=== PATIENT | female | born 1955 | race Hispanic/Latino ===

== ENCOUNTER 2018-02-06 14:52 | Inpatient (IN) | payer OTHER, BC ==
[2018-02-06 14:53] VITALS: BMI 35.2
[2018-02-06] MEDS ORDERED: Oxycodone/Acetaminophen 5/325 mg Tab PO STA (15:27)
--- NOTE | 2018-02-06 15:31 | ED PDOC ---
Arrival/HPI - General Chief Complaint: Trauma Time Seen by Provider: 02/06/18 15:26 Historian: Patient - History of Present Illness Narrative History of Present Illness (Text): 02/06/18 15:27 62 year old female, with no significant past medical history, presents to the emergency department s/p trip and fall while at work today, just prior to Emergency department arrival. Patient tripped on a wet surface while at work, and fell forward to the right side. Patient notes she felt immediate pain after the fall to her right arm/shoulder area, pt is unable to move her right arm well. Pt denied numbness/tingling, pt states no focal weakness; Patient denies any LOC (pre/post fall), pt denied fever/chills/sweats, no cp/sob/palpitations, no abd pain, no n/v, no urinary/bowel changes, no incontinence, no smith/neck pain , no vision changes, no gross bleeding, no other complaints. pt is here for further eval. PCP: Dr Espana Patient is left hand dominant Time/Duration: Prior to Arrival Symptom Onset: Sudden Symptom Course: Unchanged Severity Level: Severe Activities at Onset: Light Context: Work Past Medical History - Provider Review Nursing Documentation Reviewed: Yes - Travel History Have you recently traveled outside [place] w/in the past 3 mons?: No - Past History Past History: Non-Contributing - Infectious Disease Hx of Infectious Diseases: None - Tetanus Immunization Tetanus Immunization: Up to Date - Reproductive Menopause: Yes Currently : No - Cardiac Hx Cardiac Disorders: No Hx Pacemaker: No - Pulmonary Hx Respiratory Disorders: No - Neurological Hx Neurological Disorder: No Hx Paralysis: No - HEENT Hx HEENT Disorder: No - Renal Hx Renal Disorder: No - Endocrine/Metabolic Hx Hypothyroidism: Yes - Hematological/Oncological Hx Blood Disorders: No Hx Blood Transfusions: No Hx Blood Transfusion Reaction: No - Integumentary Hx Dermatological Disorder: No - Musculoskeletal/Rheumatological Hx Musculoskeletal Disorders: No - Gastrointestinal Hx Gastrointestinal Disorders: No - Genitourinary/Gynecological Hx Genitourinary Disorders: No - Psychiatric Hx Depression: No Hx Emotional Abuse: No Hx Physical Abuse: No Hx Substance Use: No - Past Surgical History Past Surgical History: No Previous - Anesthesia Hx Anesthesia Reactions: No Hx Malignant Hyperthermia: No - Suicidal Assessment Feels Threatened In Home Enviroment: No Family/Social History - Physician Review Nursing Documentation Reviewed: Yes Family/Social History: Unknown Family HX Smoking Status: Never Smoked Hx Alcohol Use: Yes (SOCIALLY) Hx Substance Use: No Hx Substance Use Treatment: No Allergies/Home Meds Allergies/Adverse Reactions: Allergies No Known Allergies Allergy (Verified 02/06/18 15:18) Home Medications: Home Meds Medication Instructions Recorded Confirmed Levothyroxine Sodium [Levoxyl] 200 mcg PO DAILY 02/06/18 02/06/18 Review of Systems - Physician Review All systems were reviewed & negative as marked: Yes - Review of Systems Constitutional: Normal Eyes: Normal ENT: Normal Respiratory: Normal. absent: SOB, Cough Cardiovascular: Normal. absent: Chest Pain Gastrointestinal: Normal. absent: Abdominal Pain, Diarrhea, Nausea, Vomiting Genitourinary Female: Normal. absent: Dysuria, Frequency, Hematuria Musculoskeletal: Other (right arm and right shoulder pain). absent: Back Pain, Neck Pain Skin: Normal Neurological: Normal Endocrine: Normal Hemo/Lymphatic: Normal Psychiatric: Normal Physical Exam - Physical Exam Narrative Physical Exam (Text): 02/06/18 1527 General: alert/awake, GCS = 15, oriented x 3, resting in bed, uncomfortable, cooperative, interactive; mild distress due to pain Head: NC/AT EYE: PERRLA, EOMI, sclera anicteric, no nystagmus, no photophobia; visual field intact b/l Facial: WNL Oral: uvula/tongue are midline, no exudate/lesions, no drooling/stridor, no dysphonia; intact dentitions; moist oral mucosa NECK: intact ROM, no midline tenderness, no nuchal rigidity, no meningeal signs ; no step off; no gross deformities Chest: CTA b/l, no w/r/r; no tachypenia, no accessory muscle use noted Cardiac: +S1, +S2, no m/r/r, no tachycardia Abdominal: +BS, soft/nd/nt, well nourished/mild obese female patient; no masses/ rebound/guarding/rigidity; no rutherford's sign, no mcburney's point tenderness Extremities: decr ROM to right shoulder/arm; intact ROM to rest of pt's limbs; strength 5/5 grossly intact in all limbs, neurovasc intact b/l; + ambulatory; reflex +2/2; no gross deformities noted, no pitting edema/swelling noted, no ivania's sign b/l; + diffuse right proximal arm tenderness, no crepitus/skin lesions noted; no open sores/wounds noted BACK: no step off, no midline tenderness, NO crepitus, no gross deformities noted; Intact ROM SKIN: cap refill < 1 sec, no ulcerations, no petechiae, no rashes; no gross pallor NEURO: CNII-XII WNL, no facial asymmetries, no slurr speech, oriented x 3 Psych: normal insight, normal affect; follows command with ease Vital Signs Reviewed: Yes Vital Signs Temp Pulse Pulse Resp BP Pulse Ox 02/06/18 20:16 97.7 F 50 L 50 L 20 138/74 02/06/18 19:52 55 L 20 145/80 95 02/06/18 15:44 97.7 F 50 L 20 138/74 95 Temperature: Afebrile Blood Pressure: Normal Pulse: Bradycardic Respiratory Rate: Normal Appearance: Positive for: Well-Appearing, Uncomfortable. 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 Plan: -- Valium -- Toradol -- Percocet -- Xray rigth elbow -- Xray rt humerus -- Xray rt shoulder -- Reassess and disposition Progress Notes: 02/06/18 16:43 pt is awaiting dx results 02/06/18 16:58 with abnl xray, consulted Dr David, education diagnostician ortho, who recommended CT and would like pt admitted for further eval/mgt/txt of pt's right shoulder/arm fracture pt continues to have pain pt is made aware of her medical results pt agrees with admission paging hospitalists for admission 02/06/18 17:25 Case discussed with hospitalist, Dr Gardner, made aware of pt's Emergency department presentation, diagnostic findings; agrees with admission 1900 pt is not in any distress currently pt is resting in bed comfortably pt is made aware of her medical results agrees with admission Re-evaluation Time: 17:25 Reassessment Condition: Improving,but remains with symptoms - Lab Interpretations I have reviewed the lab results: Yes Interpretation: Abnormal lab values (elevated WBCs) - RAD Interpretation Narrative RAD Interpretations (Text): 02/06/18 17:40 Xray Humerus reviewed, shows: BONES: Known fracture of the right humeral head. No additional, distal abnormalities identified. SOFT TISSUES: Soft tissue swelling attests to the acuity of the fracture. OTHER FINDINGS: None. IMPRESSION: Acute fracture which is both comminuted and intra-articular. No distal humeral abnormalities Xray Elbow reviewed, shows: BONES: Normal. No fracture. JOINTS: Normal. No osteoarthritis. SOFT TISSUES: Normal. JOINT EFFUSION: None. OTHER FINDINGS: None. IMPRESSION: Unremarkable radiographs of the right elbow. Xray Shoulder reviewed, shows: Impacted and comminuted fracture of the proximal humerus/humeral head. Avulsed fracture fragments are identified. JOINTS: Unremarkable acromioclavicular joint. SOFT TISSUES: Soft tissue swelling attests to the acuity of the fracture. OTHER FINDINGS: None. IMPRESSION: Acute/comminuted fracture right humeral head. Upper Extremity CT reviewed, shows: Impacted fracture of the proximal left humerus. The humeral neck is both impacted and displaced medially. Avulsion of the greater tuberosity. Preservation of the glenohumeral head relationship. No acromioclavicular abnormalities identified. No visualized rib fractures. Unremarkable scapula. Soft tissue swelling attests to the acuity of the fracture. IMPRESSION: Impacted, comminuted fracture of proximal right humerus. Preservation of glenohumeral relationship. Additional details described above PROCEDURE: CHEST RADIOGRAPH, 1 VIEW HISTORY: medical clearance COMPARISON: None available. FINDINGS: LUNGS: Clear. PLEURA: No pneumothorax or pleural fluid seen. CARDIOVASCULAR: No radiographic findings to suggest acute or significant cardiovascular disease. OSSEOUS STRUCTURES: Incompletely visualize proximal right humeral fracture. VISUALIZED UPPER ABDOMEN: Normal. OTHER FINDINGS: None. IMPRESSION: No active disease. Radiology Orders: 02/06/18 15:27 SHOULDER RIGHT [RAD] Stat 02/06/18 15:28 ELBOW RIGHT 3 VIEWS ROUTINE [RAD] Stat HUMERUS RIGHT [RAD] Stat 02/06/18 16:53 EXT UPPER W/O CONTRAST RIGHT [CT] Stat 02/06/18 16:55 CHEST ONE VIEW [RAD] Stat Writer Editor: Radiologist - EKG Interpretation EKG Interpretation (Text): 02/06/18 21:31 NSR at 70 bpm, normal axis, no ectopy, inferior lead low voltage noted, no st-t changes, BORDERLINE EKG; no old ekg to compare with Interpreted by ED Physician: Yes Type: 12 lead EKG Comparison: No previous EKG avail. - Medication Orders Current Medication Orders: Famotidine (Pepcid) 20 mg IVP DAILY YIFAN Sodium Chloride (Sodium Chloride 0.9%) 1,000 mls @ 100 mls/hr IV .Q10H YIFAN Last Admin: 02/06/18 18:50 Dose: 100 mls/hr eMAR Start Stop Document 02/06/18 18:50 LA (Rec: 02/06/18 18:50 LA [id number]) Intravenous Solution Start Date 02/06/18 Start Time 18:50 Morphine Sulfate (Morphine) 1 mg IVP Q3H PRN PRN Reason: Pain, moderate (4-7) Polyethylene Glycol (Miralax) 17 gm PO BID YIFAN Discontinued Medications Diazepam (Valium) 2 mg PO ONCE ONE PRN Reason: Protocol Stop: 02/06/18 15:28 Last Admin: 02/06/18 15:54 Dose: 2 mg Ketorolac Tromethamine (Toradol) 30 mg IM STAT STA Stop: 02/06/18 15:28 Last Admin: 02/06/18 15:54 Dose: 30 mg MAR Pain Assessment Document 02/06/18 15:54 LA (Rec: 02/06/18 15:54 LA [id number]) Pain Reassessment Is this a pain reassessment? No Sleep Is patient sleeping during reassessment? No Presence of Pain Presence of Pain Yes Pain Scale Used Pain Scale Used Numeric Location Left, Right or Bilateral Right Pain Location Body Site Shoulder Description Description Constant Intensity of Pain at present 10 Pain Behavior Guarding IM Administration Charges Document 02/06/18 15:54 LA (Rec: 02/06/18 15:54 LA [id number]) Injection Site MAR Injection Site Right Gluteus Braulio Charges for Administration # of IM Administrations 1 Re-Assess: MAR Pain Assessment Document 02/06/18 16:54 LA (Rec: 02/06/18 19:44 LA [id number]) Pain Reassessment Is this a pain reassessment? Yes Sleep Is patient sleeping during reassessment? No Presence of Pain Presence of Pain Yes Location Left, Right or Bilateral Right Pain Location Body Site Shoulder Description Description Constant Intensity of Pain at present 6 Morphine Sulfate (Morphine) 4 mg IVP STAT STA Stop: 02/06/18 16:57 Last Admin: 02/06/18 18:49 Dose: 4 mg MAR Pain Assessment Document 02/06/18 18:49 LA (Rec: 02/06/18 18:49 LA [id number]) Pain Reassessment Is this a pain reassessment? No Sleep Is patient sleeping during reassessment? No Presence of Pain Presence of Pain Yes Pain Scale Used Pain Scale Used Numeric Location Left, Right or Bilateral Left Pain Location Body Site Shoulder Description Description Constant Intensity of Pain at present 6 Pain Behavior Guarding IVP Administration Document 02/06/18 18:49 LA (Rec: 02/06/18 18:49 LA [id number]) Charges for Administration # of IVP Administrations 1 Re-Assess: [facility] Pain Assessment Document 02/06/18 19:49 LA (Rec: 02/06/18 20:54 LA [id number]) Pain Reassessment Is this a pain reassessment? Yes Location Left, Right or Bilateral Right Pain Location Body Site Shoulder Description Intensity of Pain at present 5 Oxycodone/Acetaminophen (Percocet 5/325 Mg Tab) 1 tab PO STAT STA Stop: 02/06/18 15:28 Last Admin: 02/06/18 15:53 Dose: [address] [facility] Pain Assessment Document 02/06/18 15:53 LA (Rec: 02/06/18 15:54 LA [id number]) Pain Reassessment Is this a pain reassessment? No Sleep Is patient sleeping during reassessment? No Presence of Pain Presence of Pain Yes Pain Scale Used Pain Scale Used Numeric Location Left, Right or Bilateral Right Pain Location Body Site Shoulder Description Description Constant Intensity of Pain at present 10 Re-Assess: [facility] Pain Assessment Document 02/06/18 16:53 LA (Rec: 02/06/18 19:43 LA [id number]) Pain Reassessment Is this a pain reassessment? Yes Sleep Is patient sleeping during reassessment? No Presence of Pain Presence of Pain Yes Pain Scale Used Pain Scale Used Numeric Location Left, Right or Bilateral Right Pain Location Body Site Shoulder Description Description Constant Intensity of Pain at present 6 Pain Behavior Guarding Pneumococcal Polyvalent Vaccine (Pneumovax 23 Vaccine) 0.5 ml IM .ONCE ONE Stop: 02/06/18 20:42 - Scribe Statement The provider has reviewed the documentation as recorded by the Viktoryiaibayleen Terrell All medical record entries made by the Scribayleen were at my direction and personally dictated by me. I have reviewed the chart and agree that the record accurately reflects my personal performance of the history, physical exam, medical decision making, and the department course for this patient. I have also personally directed, reviewed, and agree with the discharge instructions and disposition. Disposition/Present on Arrival - Present on Arrival Any Indicators Present on Arrival: No History of DVT/PE: No History of Uncontrolled Diabetes: No Urinary Catheter: No History of Decub. Ulcer: No History Surgical Site Infection Following: None - Disposition Have Diagnosis and Disposition been Completed?: Yes Diagnosis: Proximal humeral fracture, Fall Disposition: HOSPITALIZED Disposition Time: 17:30 Patient Plan: Admission Condition: STABLE
[2018-02-06] MEDS ORDERED: Morphine 2 mg/ml ISec IVP STA (16:56)
--- NOTE | 2018-02-06 17:11 | RAD ---
PROCEDURE: Radiographs of the Right Shoulder HISTORY: trip and fall at work, right arm pain COMPARISON: No prior. FINDINGS: BONES: Impacted and comminuted fracture of the proximal humerus/humeral head. Avulsed fracture fragments are identified. JOINTS: Unremarkable acromioclavicular joint. SOFT TISSUES: Soft tissue swelling attests to the acuity of the fracture. OTHER FINDINGS: None. IMPRESSION: Acute/comminuted fracture right humeral head.
--- NOTE | 2018-02-06 17:12 | RAD ---
PROCEDURE: Radiographs of the right elbow. HISTORY: trip and fall at work, right arm pain COMPARISON: February 06, 2018. FINDINGS: BONES: Normal. No fracture. JOINTS: Normal. No osteoarthritis. SOFT TISSUES: Normal. JOINT EFFUSION: None. OTHER FINDINGS: None. IMPRESSION: Unremarkable radiographs of the right elbow.
--- NOTE | 2018-02-06 17:12 | RAD ---
PROCEDURE: Radiographs of the right humerus. HISTORY: trip and fall at work, right arm pain COMPARISON: February 06, 2018. FINDINGS: BONES: Known fracture of the right humeral head. No additional, distal abnormalities identified. SOFT TISSUES: Soft tissue swelling attests to the acuity of the fracture. OTHER FINDINGS: None. IMPRESSION: Acute fracture which is both comminuted and intra-articular. No distal humeral abnormalities
--- NOTE | 2018-02-06 17:33 | CT ---
PROCEDURE: CT right upper extremity HISTORY: right arm pain, fall, prox humeral fx COMPARISON: February 06, 2018. TECHNIQUE: 1.25 mm axial acquisition and display. Coronal and sagittal reconstructions. Radiation dosimetry DLP (mGy-cm) 354.02 FINDINGS: Impacted fracture of the proximal left humerus. The humeral neck is both impacted and displaced medially. Avulsion of the greater tuberosity. Preservation of the glenohumeral head relationship. No acromioclavicular abnormalities identified. No visualized rib fractures. Unremarkable scapula. Soft tissue swelling attests to the acuity of the fracture. IMPRESSION: Impacted, comminuted fracture of proximal right humerus. Preservation of glenohumeral relationship. Additional details described above
--- NOTE | 2018-02-06 17:34 | RAD ---
PROCEDURE: CHEST RADIOGRAPH, 1 VIEW HISTORY: medical clearance COMPARISON: None available. FINDINGS: LUNGS: Clear. PLEURA: No pneumothorax or pleural fluid seen. CARDIOVASCULAR: No radiographic findings to suggest acute or significant cardiovascular disease. OSSEOUS STRUCTURES: Incompletely visualize proximal right humeral fracture. VISUALIZED UPPER ABDOMEN: Normal. OTHER FINDINGS: None. IMPRESSION: No active disease.
--- NOTE | 2018-02-06 18:27 | CP.PCM.HP ---
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 Pt was tripped across a door beam on the floor, became air-borne, and landed on her R shoulder. Denies hitting her head. Then she felt immediate pain after the fall. Prior to the fall, denies dizziness, weak legs, any acute sickness or blurry vision In the ED, X-ray showed acute fracture (comminuted and intra-articular) at R proximal humerus/humeral head. No distal humeral abnormalities. Unremarkable radiographs of the right elbow. CT showed Impacted, comminuted fracture of proximal right humerus with (+) Avulsion of the greater tuberosity. Preservation of glenohumeral relationship. ROS- (+) R shoulder pain, controlled Denies loc, numbness/ tingling of UE b/l, fever, chills, chest pain, shortness of breath, nausea, vomiting, diarrhea, back pain, neck pain, headache, dizziness , dysuria. PMD: Dr. Espana Dentist: Dr Marroquin PMH: lymphocytic thyroiditis but not on synthroid (for 6 month) because her medicine was not refilled by PMD office PSH: none Partial dental bridge placement next Thursday FH: healthy SH: Live with , ambulate indepenently 2-3 flights of stairs to home and bedroom Denies ever smoke 1-2 glasses of wine per year Denies drug All: NKDA Med: none Pharm: Yokasta Segovia, [address] [place] [address], stan Present on Admission - Present on Admission Any Indicators Present on Admission: No Past Patient History - Infectious Disease Hx of Infectious Diseases: None - Tetanus Immunizations Tetanus Immunization: Up to Date - Past Social History Smoking Status: Never Smoked - CARDIAC Hx Cardiac Disorders: No Hx Pacemaker: No - PULMONARY Hx Respiratory Disorders: No - NEUROLOGICAL Hx Neurological Disorder: No Hx Paralysis: No - HEENT Hx HEENT Problems: No - RENAL Hx Chronic Kidney Disease: No - ENDOCRINE/METABOLIC Hx Hypothyroidism: Yes - HEMATOLOGICAL/ONCOLOGICAL Hx Blood Disorders: No Hx Blood Transfusions: No Hx Blood Transfusion Reaction: No - INTEGUMENTARY Hx Dermatological Problems: No - MUSCULOSKELETAL/RHEUMATOLOGICAL Hx Musculoskeletal Disorders: No - GASTROINTESTINAL Hx Gastrointestinal Disorders: No - GENITOURINARY/GYNECOLOGICAL Hx Genitourinary Disorders: No - PSYCHIATRIC Hx Depression: No Hx Emotional Abuse: No Hx Physical Abuse: No Hx Substance Use: No - SURGICAL HISTORY Hx Surgeries: No - ANESTHESIA Hx Anesthesia Reactions: No Hx Malignant Hyperthermia: No Meds Allergies/Adverse Reactions: Allergies Allergy/AdvReac Type Severity Reaction Status Date / Time No Known Allergies Allergy Verified 02/07/18 02:28 Physical Exam - Constitutional Appears: No Acute Distress - Head Exam Head Exam: ATRAUMATIC, NORMAL INSPECTION, NORMOCEPHALIC - Eye Exam Eye Exam: EOMI, Normal appearance, PERRL. absent: Scleral icterus Pupil Exam: NORMAL ACCOMODATION - ENT Exam ENT Exam: Mucous Membranes Moist - Neck Exam Additional comments: supple - Respiratory Exam Respiratory Exam: Clear to Auscultation Bilateral. absent: Rales, Rhonchi, Wheezes - Cardiovascular Exam Cardiovascular Exam: REGULAR RHYTHM, +S1, +S2 - GI/Abdominal Exam GI & Abdominal Exam: Normal Bowel Sounds, Soft. absent: Distended, Guarding, Rigid, Tenderness - Extremities Exam Extremities exam: Positive for: pedal pulses present. Negative for: calf tenderness Additional comments: R arm ROM limited by pain, motor limited by pain, sensation intact, radial pulse 2+, no visible bleeing L arm ROM normal, normal motor/sensory/radial pulse - Neurological Exam Neurological exam: Alert, CN II-XII Intact, Normal Gait, Oriented x3 - Psychiatric Exam Psychiatric exam: Normal Affect, Normal Mood - Skin Skin Exam: Dry, Warm Results - Vital Signs Recent Vital Signs: Last Vital Signs Temp 97.7 F 02/06/18 15:44 Pulse 50 L 02/06/18 15:44 Resp 20 02/06/18 15:44 BP 138/74 02/06/18 15:44 Pulse Ox 95 02/06/18 15:44 - Labs Result Diagrams: 02/06/18 19:29 02/06/18 19:29 Assessment & Plan - Assessment and Plan (Free Text) Plan: Ms Ferrari, 62 F, left-hand dominant, 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 She sustained Impacted, comminuted fracture of proximal right humerus with (+) Avulsion of the greater tuberosity. Preservation of glenohumeral relationship. Plan for ORIF tomorrow as per ortho. Fracture, proximal right humerus - pain control, morphine 1q3 PRN - if LFT not elevated, can add percocet - ortho consult - fall precaution - NPO mn - zofran PRN Pre-op medical clearance - medium risk surgery - CXR: no acute disease - EKG f/u - INR normal Leukocytosis, likely reactive - afebrile - f/u u/a - observe off antibiotics - CBC in AM Hx lymphocytic thyroiditis - Full thyroid function panel PVX: pepcid, scds s/r/d/w Dr. Gardner <Aleks Gardner - Last Filed: 02/07/18 10:50> Results - Vital Signs Recent Vital Signs: Last Vital Signs Temp 98.2 F 02/07/18 08:21 Pulse 83 02/07/18 08:21 Resp 20 02/07/18 08:21 BP 108/62 02/07/18 08:21 Pulse Ox 99 02/07/18 08:21 - Labs Result Diagrams: 02/07/18 07:00 02/07/18 07:00 Labs: Laboratory Results - last 24 hr 02/06/18 02/06/18 02/06/18 19:29 19:29 19:29 WBC 13.7 H D RBC 4.72 Hgb 13.3 Hct 40.0 MCV 84.7 MCH 28.2 MCHC 33.3 RDW 13.4 Plt Count 281 MPV 9.7 Gran % 86.9 H Lymph % (Auto) 8.7 L Barber % (Auto) 4.2 Eos % (Auto) 0.1 L Baso % (Auto) 0.1 Gran # 11.94 H Lymph # (Auto) 1.2 Barber # (Auto) 0.6 Eos # (Auto) 0.0 Baso # (Auto) 0.01 PT 12.4 INR 1.09 H APTT 32.9 Sodium 141 Potassium 4.9 Chloride 105 Carbon Dioxide 25 Anion Gap 16 BUN 10 Creatinine 0.6 L Est GFR ( Amer) > 60 Est GFR (Non-Af Amer) > 60 Random Glucose 106 Calcium 9.4 Total Bilirubin 0.5 AST 23 ALT 19 Alkaline Phosphatase 93 Total Protein 7.6 Albumin 4.2 Globulin 3.5 Albumin/Globulin Ratio 1.2 Free T4 T3 Uptake TSH 3rd Generation 02/07/18 02/07/18 02/07/18 07:00 07:00 07:00 WBC 8.3 D RBC 4.38 Hgb 12.1 Hct 37.2 MCV 84.9 MCH 27.6 MCHC 32.5 RDW 13.4 Plt Count 258 MPV 9.8 Gran % 72.4 H Lymph % (Auto) 18.6 L Barber % (Auto) 8.4 H Eos % (Auto) 0.5 L Baso % (Auto) 0.1 Gran # 6.00 Lymph # (Auto) 1.5 Barber # (Auto) 0.7 H Eos # (Auto) 0.0 Baso # (Auto) 0.01 PT INR APTT Sodium 142 Potassium 4.5 Chloride 105 Carbon Dioxide 26 Anion Gap 15 BUN 12 Creatinine 0.6 L Est GFR ( Amer) > 60 Est GFR (Non-Af Amer) > 60 Random Glucose 101 Calcium 9.0 Total Bilirubin 0.7 AST 20 ALT 30 Alkaline Phosphatase 85 Total Protein 7.1 Albumin 3.7 Globulin 3.4 Albumin/Globulin Ratio 1.1 Free T4 1.08 T3 Uptake 34.8 TSH 3rd Generation 4.45 Attending/Attestation - Attestation I have personally seen and examined this patient.: Yes I have fully participated in the care of the patient.: Yes I have reviewed all pertinent clinical information: Yes Notes (Text): 02/07/18 10:47 Medical record note made by the resident after discussion with my direction and input after the patient was personally seen and examined by me. I have reviewed the chart and agree that the record accurately reflects by personal performance of the history, physical exam, data review, and medical decision-making, in the course for the patient. I have also personally directed the plan of care. 62 F, PMH of lymphocytic thyroiditis not on synthroid since last 6 month is admitted with mechanical fall, has comminuted fracture of proximal right humerus with (+) Avulsion of the greater tuberosity. Preservation of glenohumeral relationship. Plan for ORIF tomorrow as per ortho.Patient EKG was reviewed, She will need routing physical therapy and DVT Prophylaxis after the surgery. We will also check patient thyroid functions and vitamin D level. Management plan was discussed in detail with patient. Education was provided.
[2018-02-06] MEDS: Sodium Chloride 0.9% 1,000 ML IV SCH (18:50)
[2018-02-06] MEDS ORDERED: Morphine 2 mg/2 mL syringe IVP PRN (18:58)
[2018-02-06] MEDS ORDERED: Morphine 2 mg/ml ISec IVP PRN (18:58)
[2018-02-06 19:44] LABS: BASO # 0.01 K/mm3 (0.0-2.0); BASO % 0.1 % (0.0-3.0); EOS % 0.1 % (1.5-5.0); GRAN # 11.94 (1.4-6.5); GRAN % 86.9 % (50.0-68.0); HEMOGLOBIN 13.3 g/dL (12.0-16.0); LYMPH # 1.2 (1.2-3.4); LYMPH % 8.7 % (22.0-35.0); MEAN CELL VOLUME 84.7 fl (80.0-105.0); MEAN CORPUSCULAR HEMOGLOBIN 28.2 pg (25.0-35.0); MEAN CORPUSCULAR HGB CONC 33.3 g/dl (31.0-37.0); MEAN PLATELET VOLUME 9.7 fl (7.0-11.0); MONO # 0.6 (0.1-0.6); MONO % 4.2 % (1.0-6.0); RBC 4.72 10^6/uL (3.5-6.1); RED CELL DISTRIBUTION WIDTH 13.4 % (11.5-14.5); WHITE BLOOD COUNT 13.7 10^3/ul (4.5-11.0)
[2018-02-06 19:55] LABS: PROTHROMBIN TIME 12.4 SECONDS (9.4-12.5)
[2018-02-06 19:56] LABS: INR 1.09 (0.93-1.08); PARTIAL THROMBOPLASTIN TIME 32.9 Seconds (25.1-36.5)
[2018-02-06 19:59] LABS: ALB/GLOB RATIO 1.2 (1.1-1.8); ALBUMIN 4.2 g/dL (3.0-4.8); CALCIUM 9.4 mg/dL (8.4-10.5); GFR AFRICAN-AMERICAN > 60; GFR NON-AFRICAN AMERICAN > 60
[2018-02-06 20:16] LABS: ALT/SGPT 19 U/L (7-56); AST/SGOT 23 U/L (14-36); BLOOD UREA NITROGEN 10 mg/dL (7-21)
[2018-02-06] MEDS ORDERED: Pneumococcal 23-Valent Vaccine IM ONE (20:41)
[2018-02-07] MEDS: POLYETHYLENE GLYCOL 3350 17 GM/Dose PACKET PO SCH ×3 (02:06→17:23)
[2018-02-07 07:16] LABS: BASO # 0.01 K/mm3 (0.0-2.0); BASO % 0.1 % (0.0-3.0); EOS % 0.5 % (1.5-5.0); GRAN % 72.4 % (50.0-68.0); HEMOGLOBIN 12.1 g/dL (12.0-16.0); LYMPH # 1.5 (1.2-3.4); LYMPH % 18.6 % (22.0-35.0); MEAN CELL VOLUME 84.9 fl (80.0-105.0); MEAN CORPUSCULAR HEMOGLOBIN 27.6 pg (25.0-35.0); MEAN CORPUSCULAR HGB CONC 32.5 g/dl (31.0-37.0); MEAN PLATELET VOLUME 9.8 fl (7.0-11.0); MONO # 0.7 (0.1-0.6); MONO % 8.4 % (1.0-6.0); RBC 4.38 10^6/uL (3.5-6.1); RED CELL DISTRIBUTION WIDTH 13.4 % (11.5-14.5); WHITE BLOOD COUNT 8.3 10^3/ul (4.5-11.0)
[2018-02-07 07:28] LABS: ALB/GLOB RATIO 1.1 (1.1-1.8); ALBUMIN 3.7 g/dL (3.0-4.8); ALT/SGPT 30 U/L (7-56); AST/SGOT 20 U/L (14-36); BLOOD UREA NITROGEN 12 mg/dL (7-21); GFR AFRICAN-AMERICAN > 60; GFR NON-AFRICAN AMERICAN > 60
[2018-02-07 07:42] LABS: FREE T4 1.08 ng/dL (0.78-2.19); T3 UPTAKE 34.8 % (23.0-41.0)
--- NOTE | 2018-02-07 11:43 | CP.PCM.PN ---
<Gwyn Billings - Last Filed: 02/07/18 16:31> Subjective - Date & Time of Evaluation Date of Evaluation: 02/07/18 Time of Evaluation: 11:38 - Subjective Subjective: Patient seen and examined this AM. Overnight no acute events reported. Patient complaining of right arm pain but reports is managable. Patient denies chest pain, shortness of breath, abdominal pain, nausea, vomiting, fever, chills. Objective - Vital Signs/Intake and Output Vital Signs (last 24 hours): Temp Pulse Resp BP Pulse Ox 98.2 F 83 20 108/62 99 02/07/18 08:21 02/07/18 08:21 02/07/18 08:21 02/07/18 08:21 02/07/18 08:21 Intake and Output: 02/07/18 02/07/18 06:59 18:59 Intake Total 540 Balance 540 - Medications Medications: Current Medications Famotidine (Pepcid) 20 mg IVP DAILY [facility] Last Admin: 02/07/18 10:13 Dose: 20 mg Sodium Chloride (Sodium Chloride 0.9%) 1,000 mls @ 100 mls/hr IV .Q10H [facility] Last Admin: 02/06/18 18:50 Dose: 100 mls/hr Morphine Sulfate (Morphine) 1 mg IVP Q3H PRN PRN Reason: Pain, moderate (4-7) Polyethylene Glycol (Miralax) 17 gm PO BID [facility] Last Admin: 02/07/18 10:10 Dose: Not Given - Labs Labs: 02/07/18 07:00 02/07/18 07:00 PT 12.4 SECONDS (9.4-12.5) 02/06/18 19:29 INR 1.09 (0.93-1.08) H 02/06/18 19:29 APTT 32.9 Seconds (25.1-36.5) 02/06/18 19:29 - Constitutional Appears: No Acute Distress - Head Exam Head Exam: ATRAUMATIC, NORMAL INSPECTION, NORMOCEPHALIC - Eye Exam Eye Exam: EOMI, PERRL - Neck Exam Neck Exam: Full ROM - Respiratory Exam Respiratory Exam: Clear to Ausculation Bilateral, NORMAL BREATHING PATTERN - Cardiovascular Exam Cardiovascular Exam: REGULAR RHYTHM, +S1, +S2 - GI/Abdominal Exam GI & Abdominal Exam: Soft, Normal Bowel Sounds - Extremities Exam Additional comments: right arm with limited ROM secondary to pain, sensation intact, pulse +2 radial and ulnar Left arm normal ROM - Neurological Exam Neurological Exam: Alert, Awake, Oriented x3 Neuro motor strength exam: Left Upper Extremity: 5, Right Upper Extremity: 4 ( secondary to pain ), Left Lower Extremity: 5, Right Lower Extremity: 5 - Psychiatric Exam Psychiatric exam: Normal Affect, Normal Mood - Skin Skin Exam: Dry, Intact Assessment and Plan - Assessment and Plan (Free Text) Assessment: 62 F, left-hand dominant, 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 Patient found to have comminuted fracture of proximal right humerus with (+) Avulsion of the greater tuberosity. Preservation of glenohumeral relationship. Plan: Proximal right humerus communited fracture - acute fracture (comminuted and intra-articular) at R proximal humerus/humeral head. No distal humeral abnormalities. Unremarkable radiographs of the right elbow - CT showed Impacted, comminuted fracture of proximal right humerus with (+) Avulsion of the greater tuberosity. Preservation of glenohumeral relationship - Pulses +2 radial and ulnar - Ortho consulted and following - Fall precaution, Right arm sling - Morphine 1mg Q3H prn pain - ORIF planned for tomorrow Pre-op medical clearance - medium risk surgery - CXR: no acute disease - EKG f/u - INR normal Hx lymphocytic thyroiditis - TSH 4.45 - T4 1.08 - Asymptomatic GI/DVT ppx - Pepcid - SCD Case and plan discussed with attending <Aleks Gardner - Last Filed: 02/15/18 13:12> Objective - Vital Signs/Intake and Output Vital Signs (last 24 hours): Temp Pulse Resp BP Pulse Ox 98 F 96 H 18 115/73 100 02/11/18 14:00 02/11/18 14:00 02/11/18 14:00 02/11/18 14:00 02/11/18 14:00 - Labs Labs: 02/11/18 07:00 02/11/18 07:00 PT 12.4 SECONDS (9.4-12.5) 02/06/18 19:29 INR 1.09 (0.93-1.08) H 02/06/18 19:29 APTT 32.9 Seconds (25.1-36.5) 02/06/18 19:29 Attending/Attestation - Attestation I have personally seen and examined this patient.: Yes I have fully participated in the care of the patient.: Yes I have reviewed all pertinent clinical information, including history, physical exam and plan: Yes Notes (Text): 02/15/18 13:11 Medical record note made by the resident after discussion with my direction and input after the patient was personally seen and examined by me. I have reviewed the chart and agree that the record accurately reflects by personal performance of the history, physical exam, data review, and medical decision-making, in the course for the patient. I have also personally directed the plan of care.
[2018-02-07] MEDS: Sodium Chloride 0.9% 1,000 ML IV SCH (16:14)
--- NOTE | 2018-02-07 17:05 | CARD ---
APPROVED REPORT EKG Measurement Heart [id number] <Conclusion> Normal sinus rhythm Normal ECG
--- NOTE | 2018-02-08 08:33 | CON ---
DATE: 02/06/2018 REASON FOR CONSULTATION: Right proximal humerus fracture. HISTORY OF PRESENT ILLNESS: A 62-year-old right hand dominant female who sustained a slip and fall landing on her right upper extremity. The patient presents to [place] emergency room with pain over the right shoulder area, difficulty moving the shoulder. The patient denies any shoulder problems prior to her injury. PAST MEDICAL HISTORY: Significant for hypothyroid. 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 Denies drinking or smoking. PHYSICAL EXAMINATION: EXTREMITIES: Right upper extremity, there is diffuse tenderness over the shoulder area. The patient has difficulty with active flexion or abduction of the shoulder due to pain. Sensation is intact in C4 through C8 dermatome. Has active flexion and extension of her elbow and wrist. Neurovascularly intact. Bilateral lower extremities, full range of motion of hips and knees and ankles. No bony tenderness. No instability. Neurovascularly intact. IMAGING STUDIES: X-rays of the right shoulder was seen and reviewed, show displaced proximal humerus three-part fracture. CT scan of the proximal humerus was also seen and reviewed, shows osteoporosis bone with displaced three-part proximal humerus fracture. ASSESSMENT: Right shoulder three-part proximal humerus fracture. PLAN: I discussed the above findings with the patient. At this time, I recommended surgery for her fracture. Surgery will include proximal humerus open reduction and internal fixation versus hemiarthroplasty. Risks and benefits of the surgery were explained. Risks included, but not limited to bleeding, infection and additional surgery in the future. The patient was admitted to the hospital for medical clearance and optimization. Will plan on urgent surgery Lonnie David MD MTDBong
[2018-02-08 09:57] LABS: HEMOGLOBIN 11.4 g/dL (12.0-16.0); MEAN CELL VOLUME 84.7 fl (80.0-105.0); MEAN CORPUSCULAR HEMOGLOBIN 28.1 pg (25.0-35.0); MEAN CORPUSCULAR HGB CONC 33.2 g/dl (31.0-37.0); MEAN PLATELET VOLUME 9.6 fl (7.0-11.0); RBC 4.05 10^6/uL (3.5-6.1); RED CELL DISTRIBUTION WIDTH 13.2 % (11.5-14.5); WHITE BLOOD COUNT 9.3 10^3/ul (4.5-11.0)
[2018-02-08] MEDS: POLYETHYLENE GLYCOL 3350 17 GM/Dose PACKET PO SCH ×3 (09:57→18:15)
--- NOTE | 2018-02-08 14:26 | CP.PCM.PN ---
<Kai aHley - Last Filed: 02/08/18 14:23> Subjective - Date & Time of Evaluation Date of Evaluation: 02/08/18 Time of Evaluation: 11:30 - Subjective Subjective: Pt seen and examined at bedside. No acute overnight events reported. Pt states she feels well, states pain in R arm is well controlled. Seated upright in chair oob with sling on R arm, appears comfortable. Pt NPO for ORIF procedure by ortho today. Denies numbness/tingling, or changes in color to R upper extremity. Objective - Vital Signs/Intake and Output Vital Signs (last 24 hours): Temp Pulse Resp BP Pulse Ox 97.4 F L 96 H 20 143/81 96 02/08/18 07:19 02/08/18 07:19 02/08/18 07:19 02/08/18 07:19 02/08/18 07:19 Intake and Output: 02/08/18 02/08/18 06:59 18:59 Intake Total 660 Balance 660 - Medications Medications: Current Medications Famotidine (Pepcid) 20 mg IVP DAILY [facility] Last Admin: 02/08/18 09:57 Dose: 20 mg Sodium Chloride (Sodium Chloride 0.9%) 1,000 mls @ 100 mls/hr IV .Q10H [facility] Last Admin: 02/07/18 16:14 Dose: Not Given Morphine Sulfate (Morphine) 1 mg IVP Q3H PRN PRN Reason: Pain, moderate (4-7) Polyethylene Glycol (Miralax) 17 gm PO BID [facility] Last Admin: 02/08/18 10:04 Dose: Not Given - Labs Labs: 02/08/18 08:19 02/07/18 07:00 PT 12.4 SECONDS (9.4-12.5) 02/06/18 19:29 INR 1.09 (0.93-1.08) H 02/06/18 19:29 APTT 32.9 Seconds (25.1-36.5) 02/06/18 19:29 - Constitutional Appears: Well, Non-toxic, No Acute Distress - Head Exam Head Exam: ATRAUMATIC, NORMOCEPHALIC - Eye Exam Eye Exam: EOMI, Normal appearance, PERRL - ENT Exam ENT Exam: Mucous Membranes Moist, Normal Exam - Neck Exam Neck Exam: Full ROM, Normal Inspection - Respiratory Exam Respiratory Exam: Clear to Ausculation Bilateral, NORMAL BREATHING PATTERN - Cardiovascular Exam Cardiovascular Exam: REGULAR RHYTHM, +S1, +S2 - GI/Abdominal Exam GI & Abdominal Exam: Soft, Normal Bowel Sounds - Extremities Exam Additional comments: Pt observed in sling for R shoulder, pulses and sensation intact in R upper extremity, no c/c/e observed - Neurological Exam Neurological Exam: Alert, Awake, Normal Gait, Oriented x3 - Skin Skin Exam: Dry, Intact, Normal Color, Warm Assessment and Plan - Assessment and Plan (Free Text) Assessment: 62 y o female PMhx lymphocytic thyroiditis (not on synthroid for past 6 mos as per primary), with R shoulder pain s/p fall. Pt was found to have comminuted fx of R proximal humerus with (+) avulsion of the greater tuberosity. Preservation of glenohumeral relationship. Plan: Proximal R humerus comminuted fx Acute fx (comminuted and intraarticular) at R proximal humerus/humeral head. No distal humeral abnormalities. Unremarkable radiographs of the R elbow. Pulses 2+ radial and ulnar, sensation intact. Ortho consulted, following Pt to have ORIF performed by Dr. David today in OR, Pt NPO Fall precaution, R arm sling Morphine 1 mg q 3 h PRN for pain Pre-op medical clearance Medium risk surgery CXR: no acute disease EKG wnl AM coags wnl Hx lymphocytic thyroiditis TSH 4.45 T4 1.08 Asymptomatic, f/u as outpt with primary GI/DVT ppx: Pepcid, SCDs Plan d/w attending, Dr. Serra. <Bismark Serra - Last Filed: 02/08/18 15:09> Objective - Vital Signs/Intake and Output Vital Signs (last 24 hours): Temp Pulse Resp BP Pulse Ox 97.4 F L 96 H 20 143/81 96 02/08/18 07:19 02/08/18 07:19 02/08/18 07:19 02/08/18 07:19 02/08/18 07:19 Intake and Output: 02/08/18 02/08/18 06:59 18:59 Intake Total 660 360 Balance 660 360 - Medications Medications: Current Medications Famotidine (Pepcid) 20 mg IVP DAILY [facility] Last Admin: 02/08/18 09:57 Dose: 20 mg Sodium Chloride (Sodium Chloride 0.9%) 1,000 mls @ 100 mls/hr IV .Q10H [facility] Last Admin: 02/07/18 16:14 Dose: Not Given Morphine Sulfate (Morphine) 1 mg IVP Q3H PRN PRN Reason: Pain, moderate (4-7) Polyethylene Glycol (Miralax) 17 gm PO BID [facility] Last Admin: 02/08/18 10:04 Dose: Not Given - Labs Labs: 02/08/18 08:19 02/07/18 07:00 PT 12.4 SECONDS (9.4-12.5) 02/06/18 19:29 INR 1.09 (0.93-1.08) H 02/06/18 19:29 APTT 32.9 Seconds (25.1-36.5) 02/06/18 19:29 Attending/Attestation - Attestation I have personally seen and examined this patient.: Yes I have fully participated in the care of the patient.: Yes I have reviewed all pertinent clinical information, including history, physical exam and plan: Yes Notes (Text): 02/08/18 15:07 62 year old female with past medical history of lymphocytic thyroiditis who presented with right shoulder pain s/p mechanical fall. She was found to have comminuted fracture of right proximal humerus with avulsion of the greater tuberosity. Orthopedics evaluation was appreciated and patient is NPO for ORIF later today. Bismark Serra MD Hospitalist.
[2018-02-09] MEDS ORDERED: Propofol 10 mg/ml Inj (20 ML) ONE (07:21)
[2018-02-09] MEDS ORDERED: Midazolam 2 MG/2 ML VIAL ONE (07:21)
[2018-02-09] MEDS ORDERED: Rocuronium 10 mg/ml (5 ml) ONE (07:22)
[2018-02-09] MEDS ORDERED: Phenylephrine 10 mg/ml Inj ONE (07:25)
[2018-02-09] MEDS ORDERED: Bupivacaine 0.5% Inj(30mL) ONE (07:28)
[2018-02-09] MEDS ORDERED: Lidocaine 2% Inj (20ml) ONE (08:25)
[2018-02-09] MEDS ORDERED: Iodixanol 320 MG/ML 200 ML BOTTLE IV ONE (08:25)
[2018-02-09] MEDS ORDERED: Verapamil 2 ML ONE (08:25)
[2018-02-09] MEDS ORDERED: Sevoflurane - Inhalation Anesthetic Liq (250 ml) ONE (08:53)
[2018-02-09] MEDS ORDERED: Morphine 4 mg/ml ISec ONE (09:20)
[2018-02-09] MEDS: POLYETHYLENE GLYCOL 3350 17 GM/Dose PACKET PO SCH ×2 (09:44→18:43)
[2018-02-09] MEDS ORDERED: Neostigmine Methylsulfate 3mg/3ml Syringe IV ONE (09:46)
[2018-02-09] MEDS ORDERED: Lactated Ringer's 1,000 ML IV SCH (10:30)
[2018-02-09] MEDS ORDERED: HYDROmorphone 0.5 mg/0.5 ml ISec IVP PRN (10:30)
--- NOTE | 2018-02-09 10:32 | RAD ---
PROCEDURE: HISTORY: As above COMPARISON: None TECHNIQUE: Total fluoroscopic time utilized during the procedure: 58.0 seconds ; 4.93 mGy FINDINGS: Submitted images from the current procedure: 3 Please refer to the physician's notes performing the procedure. IMPRESSION: Less than 1 hour fluoroscopic time utilized during performance of the procedure
--- NOTE | 2018-02-09 10:53 | PCM.SURG1 ---
<Krystyna Vences - Last Filed: 02/09/18 10:52> Surgeon's Initial Post Op Note - Surgeon's Notes Surgeon: So David MD Patient Safety Coordinator: Jerman Mathis MD, Holli Vences PA-C Type of Anesthesia: General Endo Anesthesia Administered By: Dr. Lang Pre-Operative Diagnosis: Right proximal humerus fx Operative Findings: see full report Post-Operative Diagnosis: same Operation Performed: Right proximal humerus ORIF Specimen/Specimens Removed: none Estimated Blood Loss: EBL {In ML}: 30 Blood Products Given: N/A Drains Used: No Drains Post-Op Condition: Fair Date of Surgery/Procedure: 02/09/18 Time of Surgery/Procedure: 10:53 <Lonnie David - Last Filed: 02/09/18 14:44> Surgeon's Initial Post Op Note - Surgeon's Notes Estimated Blood Loss: EBL {In ML}: 200
--- NOTE | 2018-02-09 12:37 | RAD ---
PROCEDURE: Radiographs of the Right Shoulder HISTORY: pt in pacu, s/p ORIF COMPARISON: 02/06/2018 FINDINGS: Single view BONES: Orthopedic plating and multiple screws transfixing comminuted right humeral head and proximal right humeral shaft fracture noted. Bordering the superolateral humeral head a partially visualize comminuted fracture fragment at least 1.8 cm in size is noted. JOINTS: Glenohumeral and acromioclavicular osteoarthritis. SOFT TISSUES: Normal. OTHER FINDINGS: None. IMPRESSION: Proximal right humeral comminuted fracture status post open reduction and internal fixation. Single-view
[2018-02-09] MEDS ORDERED: Bupivacaine 0.25% Inj(30mL) ONE (12:49)
[2018-02-09] MEDS ORDERED: Dexamethasone 4 mg/1 ml ONE (12:49)
--- NOTE | 2018-02-09 13:15 | PCM.ANESB1 ---
Interscalene Block - Brachial Plexus Date of Procedure: 02/09/18 Anesthesiologist: Precious Pre-Procedure Diagnosis: Right proximal humerus fracture Post-Procedure Diagnosis: Right proximal humerus fracture Procedure Performed: Interscalene Block of Brachial Plexus Right - Procedure Interscalene Block of Brachial Plexus: This procedure was explained to the patient that it is for post-operative pain management. Consent was obtained after a thorough discussion with the patient regarding the benefits and possible complications of local anesthetic block of the Brachial Plexus at the Interscalene area. The patient was brought to the Operating Room and standard monitors were applied. Time out was held with the circulating nurse to confirm the correct surgery and appropriate block. After applying Oxygen by nasal cannula and administering IV Sedation, the patient's head was gently rotated away from the operative shoulder and the anterior scalene groove was carefully palpated. The ultrasound transducer was then applied to the skin in the transverse plane and the brachial plexus was visualized lateral to the carotid artery and in between the anterior and middle scalene muscles. After identification,the anterior lateral portion of the neck was prepped with Betadine solution three times and Lidocaine 1% was injected subcutaneously for topical analgesia. At this point, a # 22 gauge Stimuplex 2 inches insulated needle was inserted into the interscalene groove and directed in a caudal and midline direction. The needle was inserted lateral to the ultrasound transducer in-plane towards the brachial plexus in a [id number] direction. Needle advancement was performed carefully under direct ultrasound visualization. After repeated negative aspiration, 20 cc of 0.25% bupivicaine were injected. Under ultrasound guidance the local anesthetics were observed surrounding the roots of the brachial plexus. The needle was removed intact and sterile dressing was applied. The patient had stable vital signs, was conscious and in no apparent distress.
--- NOTE | 2018-02-09 14:11 | CP.PCM.PN ---
<Kai Haley - Last Filed: 02/09/18 14:08> Subjective - Date & Time of Evaluation Date of Evaluation: 02/09/18 Time of Evaluation: 12:30 - Subjective Subjective: Pt seen and examined at bedside in PACU. States she is doing well, s/p ORIF of R humeral fracture performed by ortho today. Pt received nerve block by anesthesia, tolerated well. Objective - Vital Signs/Intake and Output Vital Signs (last 24 hours): Temp Pulse Resp BP Pulse Ox 97.9 F 81 12 101/59 L 97 02/09/18 13:56 02/09/18 13:56 02/09/18 13:56 02/09/18 13:56 02/09/18 13:56 - Medications Medications: Current Medications Famotidine (Pepcid) 20 mg IVP DAILY [facility] Last Admin: 02/09/18 09:44 Dose: Not Given Hydromorphone HCl (Dilaudid) 0.5 mg IVP Q4H PRN PRN Reason: Pain, severe (8-10) Sodium Chloride (Sodium Chloride 0.9%) 1,000 mls @ 100 mls/hr IV .Q10H [facility] Last Admin: 02/07/18 16:14 Dose: Not Given Cefazolin Sodium 2 gm/ Sodium (Chloride) 100 mls @ 200 mls/hr IVPB Q8H [facility] PRN Reason: Protocol Stop: 02/10/18 00:29 Oxycodone/Acetaminophen (Percocet 5/325 Mg Tab) 1 tab PO Q4H PRN PRN Reason: Pain, Mild (1-3) Stop: 02/12/18 11:02 Polyethylene Glycol (Miralax) 17 gm PO BID [facility] Last Admin: 02/09/18 09:44 Dose: Not Given - Labs Labs: 02/08/18 08:19 02/07/18 07:00 PT 12.4 SECONDS (9.4-12.5) 02/06/18 19:29 INR 1.09 (0.93-1.08) H 02/06/18 19:29 APTT 32.9 Seconds (25.1-36.5) 02/06/18 19:29 - Constitutional Appears: Well, Non-toxic, No Acute Distress - Head Exam Head Exam: ATRAUMATIC, NORMOCEPHALIC - Eye Exam Eye Exam: EOMI, Normal appearance, PERRL - ENT Exam ENT Exam: Mucous Membranes Moist, Normal Exam - Neck Exam Neck Exam: Full ROM, Normal Inspection - Respiratory Exam Respiratory Exam: Clear to Ausculation Bilateral, NORMAL BREATHING PATTERN - Cardiovascular Exam Cardiovascular Exam: REGULAR RHYTHM, +S1, +S2 - GI/Abdominal Exam GI & Abdominal Exam: Soft, Normal Bowel Sounds - Extremities Exam Extremities Exam: Normal Capillary Refill, Normal Inspection Additional comments: Pt in sling on R arm s/p ORIF of R proximal humeral fx - Neurological Exam Neurological Exam: Alert, Awake, Oriented x3 - Psychiatric Exam Psychiatric exam: Normal Affect, Normal Mood - Skin Skin Exam: Dry, Intact, Normal Color, Warm Assessment and Plan - Assessment and Plan (Free Text) Assessment: 62 y o female PMhx lymphocytic thyroiditis (not on synthroid for past 6 mos as per primary), with R shoulder pain s/p fall. Pt was found to have comminuted fx of R proximal humerus with (+) avulsion of the greater tuberosity. Preservation of glenohumeral relationship. Pt s/p ORIF of R proximal humerus POD#0. Plan: Proximal R humerus comminuted fx Acute fx (comminuted and intraarticular) at R proximal humerus/humeral head. No distal humeral abnormalities. Unremarkable radiographs of the R elbow. Pulses 2+ radial and ulnar, sensation intact. Ortho consulted, following Pt s/p ORIF performed by Dr. David today in OR, tolerated well, continue to monitor Fall precaution, R arm sling Morphine 1 mg q 3 h PRN for pain D/c planning: will discuss with ortho team Hx lymphocytic thyroiditis TSH 4.45 T4 1.08 Asymptomatic, f/u as outpt with primary GI/DVT ppx: Pepcid, SCDs Plan d/w attending, Dr. Serra. <Bismark Serra - Last Filed: 02/09/18 16:11> Objective - Vital Signs/Intake and Output Vital Signs (last 24 hours): Temp Pulse Resp BP Pulse Ox 97.9 F 81 12 101/59 L 97 02/09/18 13:56 02/09/18 13:56 02/09/18 13:56 02/09/18 13:56 02/09/18 13:56 - Medications Medications: Current Medications Famotidine (Pepcid) 20 mg IVP DAILY [facility] Last Admin: 02/09/18 09:44 Dose: Not Given Hydromorphone HCl (Dilaudid) 0.5 mg IVP Q4H PRN PRN Reason: Pain, severe (8-10) Sodium Chloride (Sodium Chloride 0.9%) 1,000 mls @ 100 mls/hr IV .Q10H [facility] Last Admin: 02/09/18 15:00 Dose: 100 mls/hr Cefazolin Sodium 2 gm/ Sodium (Chloride) 100 mls @ 200 mls/hr IVPB Q8H [facility] PRN Reason: Protocol Stop: 02/10/18 00:29 Last Admin: 02/09/18 16:04 Dose: 200 mls/hr Oxycodone/Acetaminophen (Percocet 5/325 Mg Tab) 1 tab PO Q4H PRN PRN Reason: Pain, Mild (1-3) Stop: 02/12/18 11:02 Polyethylene Glycol (Miralax) 17 gm PO BID [facility] Last Admin: 02/09/18 09:44 Dose: Not Given - Labs Labs: 02/08/18 08:19 02/07/18 07:00 PT 12.4 SECONDS (9.4-12.5) 02/06/18 19:29 INR 1.09 (0.93-1.08) H 02/06/18 19:29 APTT 32.9 Seconds (25.1-36.5) 02/06/18 19:29 Attending/Attestation - Attestation I have personally seen and examined this patient.: Yes I have fully participated in the care of the patient.: Yes I have reviewed all pertinent clinical information, including history, physical exam and plan: Yes Notes (Text): 02/09/18 16:11 62 year old female with past medical history of lymphocytic thyroiditis who presented with right shoulder pain s/p mechanical fall. She was found to have comminuted fracture of right proximal humerus with avulsion of the greater tuberosity. Orthopedics evaluation was appreciated and patient is s/p ORIF and nerve block today. PT evaluation is requested for d/c planning. Bismark Serra MD Hospitalist.
[2018-02-09] MEDS: Sodium Chloride 0.9% 1,000 ML IV SCH (15:00)
[2018-02-09] MEDS: ceFAZolin 2 GM in Sodium Chloride 0.9% 100 ML IVPB SCH ×2 (16:04→23:01)
[2018-02-10] MEDS: Sodium Chloride 0.9% 1,000 ML IV SCH (01:25)
--- NOTE | 2018-02-10 01:52 | OP ---
PROCEDURE DATE: 02/09/2018 SURGEON: Lonnie David MD [employer]ER [employer] ASSEMBLER: Justin Mathis MD SECOND RUBBER GOODS ASSEMBLER: Krystyna HE PREOPERATIVE DIAGNOSIS: Displaced right three-part proximal humerus fracture. POSTOPERATIVE DIAGNOSIS: Displaced right three-part proximal humerus fracture. PROCEDURE: 1. Three-part proximal humerus fracture open reduction and internal fixation using Synthes plate 48126. 2. Long head of the biceps proximal soft tissue tenodesis 54418. 3. Debridement of fracture site muscle, tendon and bone 52175. ANESTHESIA: General. BLOOD LOSS: 200 mL. DRAINS: None. SPECIMENS: None. COMPLICATIONS: None. DISPOSITION: Stable to recovery room. INDICATION: This is a 62-year-old right-hand dominant female who sustained a slip and fall landing on her right shoulder. The patient presents to [facility] Emergency Room with displaced three-part proximal humerus fracture. She is indicated for above surgery. DESCRIPTION OF PROCEDURE: The patient was brought to the operating room and placed supine on the operating room table. After general anesthesia was given and prophylactic antibiotics administered, patient was placed on to the beach chair with 30 degrees flexion of her back. The right upper extremity was then prepped and draped in standard surgical fashion. Time-out was performed. Deltopectoral incision was outlined. Incision was made through skin only. All superficial veins were cauterized. Dissection was carried down to identifying the cephalic vein. The cephalic vein was mobilized to the lateral side and deltopectoral interval was bluntly incised and entered. Kolbel retractors were used to expose the fracture site. The clavipectoral fascia was also incised. The fracture site was identified. There was three-part fracture of proximal humerus involving the greater tuberosity surgical neck and head. Local debridement was performed. This include irrigation, use of curette and rongeur of muscle, bone and fracture site. Hematoma was excised. We then identified the biceps tendon, which was then locally tenodesed to the pectoralis muscle using 0 Vicryl suture. The bicipitel groove was then identified. The subscapularis tendon was identified and tagged with #5 fiber wire. Also, supraspinatus and infraspinatus tendons were identified and tagged with #5 fiber wires. Open reduction was then performed by traction, use of Olguin elevator to locate the head out of valgus impaction. Provisionally reduction was checked with the use of fluoroscopy held in place with K-wires. A proximal humerus Synthes plate was then selected and provisionally held over the fracture site. Fluoroscopic images identified anatomic reduction of the humeral head and tuberosities. Fluoroscopic images confirmed good alignment of the plate. Locking proximal screws were then placed into the humeral head in AO standard fashion followed by cortical screws in the shaft of the plate. All screws were of appropriate length and checked on the fluoroscopic images without evidence of penetrating the joint in multiple planes. K-wires were removed. The shoulder was taken to full range of motion of no instability or screw penetrance. Wound was then copiously irrigated. The sutures from the rotator cuff tendons were then passed through the plate and tied together restoring the anatomic formation of rotator cuff alignment. The rotator interval was then closed with 0 Vicryl sutures. The wound was then closed with 0 Vicryl followed by 2-0 Vicryl, followed by 3-0 Monocryl for skin. Sterile dressing was applied with the sling. Patient tolerated the procedure well and was returned to recovery room in excellent condition. During this case, I was assisted by Dr. Justin Mathis, a board certified orthopedic surgeon. His assistance was needed for proper patient positioning, intraoperative fixation of the fracture and closure. His assistance provided intraoperative safety for the patient. Lonnie David MD MTDBong
[2018-02-10] MEDS: HYDROmorphone 0.5 mg/0.5 ml ISec IVP PRN ×2 (05:34→17:49)
[2018-02-10 06:51] LABS: BASO # 0.01 K/mm3 (0.0-2.0); BASO % 0.1 % (0.0-3.0); EOS % 0.1 % (1.5-5.0); GRAN # 7.8 (1.4-6.5); GRAN % 77.8 % (50.0-68.0); HEMOGLOBIN 9.8 g/dL (12.0-16.0); LYMPH # 1.1 (1.2-3.4); LYMPH % 10.9 % (22.0-35.0); MEAN CELL VOLUME 84.3 fl (80.0-105.0); MEAN CORPUSCULAR HEMOGLOBIN 27.9 pg (25.0-35.0); MEAN CORPUSCULAR HGB CONC 33.1 g/dl (31.0-37.0); MEAN PLATELET VOLUME 9.5 fl (7.0-11.0); MONO # 1.1 (0.1-0.6); MONO % 11.1 % (1.0-6.0); RBC 3.51 10^6/uL (3.5-6.1); RED CELL DISTRIBUTION WIDTH 13.6 % (11.5-14.5)
[2018-02-10 07:03] LABS: BLOOD UREA NITROGEN 10 mg/dL (7-21); CALCIUM 8.1 mg/dL (8.4-10.5); GFR AFRICAN-AMERICAN > 60; GFR NON-AFRICAN AMERICAN > 60
[2018-02-10] MEDS: POLYETHYLENE GLYCOL 3350 17 GM/Dose PACKET PO SCH ×2 (10:28→17:50)
[2018-02-10] MEDS: Oxycodone/Acetaminophen 5/325 mg Tab PO PRN (10:28)
--- NOTE | 2018-02-10 17:46 | CP.PCM.PN ---
<Kai Haley - Last Filed: 02/11/18 17:27> Subjective - Date & Time of Evaluation Date of Evaluation: 02/10/18 Time of Evaluation: 11:30 - Subjective Subjective: Pt seen and examined at bedside. Pt is s/p ORIF of R proximal humerus POD#1. Pt states she is doing well this am, slept well overnight, states her pain is well controlled. Pt was able to ambulate with PT, states she has stiffness in R arm extending down to wrist, but denies numbness, tingling, or changes in color to affected arm. Otherwise denies any acute complaints. Passing flatus, voiding well, negative BM. Objective - Vital Signs/Intake and Output Vital Signs (last 24 hours): Temp Pulse Resp BP Pulse Ox 97.8 F 91 H 18 119/71 98 02/10/18 14:00 02/10/18 14:00 02/10/18 14:00 02/10/18 14:00 02/10/18 14:00 Intake and Output: 02/10/18 02/10/18 06:59 18:59 Intake Total 120 640 Balance 120 640 - Medications Medications: Current Medications Famotidine (Pepcid) 20 mg IVP DAILY [facility] Last Admin: 02/10/18 10:28 Dose: 20 mg Hydromorphone HCl (Dilaudid) 0.5 mg IVP Q4H PRN PRN Reason: Pain, severe (8-10) Last Admin: 02/10/18 05:34 Dose: 0.5 mg Sodium Chloride (Sodium Chloride 0.9%) 1,000 mls @ 100 mls/hr IV .Q10H [facility] Last Admin: 02/10/18 01:25 Dose: Not Given Oxycodone/Acetaminophen (Percocet 5/325 Mg Tab) 1 tab PO Q4H PRN PRN Reason: Pain, Mild (1-3) Stop: 02/12/18 11:02 Last Admin: 02/10/18 10:28 Dose: 1 tab Polyethylene Glycol (Miralax) 17 gm PO BID [facility] Last Admin: 02/10/18 10:28 Dose: 17 gm - Labs Labs: 02/10/18 06:30 02/10/18 06:30 PT 12.4 SECONDS (9.4-12.5) 02/06/18 19:29 INR 1.09 (0.93-1.08) H 02/06/18 19:29 APTT 32.9 Seconds (25.1-36.5) 02/06/18 19:29 - Constitutional Appears: Well, Non-toxic, No Acute Distress - Head Exam Head Exam: ATRAUMATIC, NORMOCEPHALIC - Eye Exam Eye Exam: EOMI, Normal appearance, PERRL - ENT Exam ENT Exam: Mucous Membranes Moist, Normal Exam, Normal Oropharynx - Neck Exam Neck Exam: Normal Inspection - Respiratory Exam Respiratory Exam: Clear to Ausculation Bilateral, NORMAL BREATHING PATTERN - Cardiovascular Exam Cardiovascular Exam: REGULAR RHYTHM, +S1, +S2 - GI/Abdominal Exam GI & Abdominal Exam: Soft, Normal Bowel Sounds - Extremities Exam Extremities Exam: Full ROM, Normal Capillary Refill, Normal Inspection Additional comments: R arm in sling, s/p ORIF procedure - Neurological Exam Neurological Exam: Alert, Awake, Oriented x3 - Psychiatric Exam Psychiatric exam: Normal Affect, Normal Mood - Skin Skin Exam: Dry, Intact, Normal Color, Warm Assessment and Plan - Assessment and Plan (Free Text) Assessment: 62 y o female PMhx lymphocytic thyroiditis (not on synthroid for past 6 mos as per primary), with R shoulder pain s/p fall. Pt was found to have comminuted fx of R proximal humerus with (+) avulsion of the greater tuberosity. Preservation of glenohumeral relationship. Pt s/p ORIF of R proximal humerus POD#1. Plan: Proximal R humerus comminuted fx Acute fx (comminuted and intraarticular) at R proximal humerus/humeral head. No distal humeral abnormalities. Unremarkable radiographs of the R elbow. Pulses 2+ radial and ulnar, sensation intact. Ortho consulted, following Pt s/p ORIF performed by Dr. David POD#1, tolerated well, continue to monitor Fall precaution, R arm sling Morphine 1 mg q 3 h PRN for pain Will contact ortho team re d/c planning Hx lymphocytic thyroiditis TSH 4.45 T4 1.08 Asymptomatic, f/u as outpt with primary GI/DVT ppx: OSVALDO Perrys Plan d/w attending, Dr. Serra. <Bismark Serra - Last Filed: 02/11/18 18:28> Objective - Vital Signs/Intake and Output Vital Signs (last 24 hours): Temp Pulse Resp BP Pulse Ox 98 F 96 H 18 115/73 100 02/11/18 14:00 02/11/18 14:00 02/11/18 14:00 02/11/18 14:00 02/11/18 14:00 Intake and Output: 02/11/18 02/11/18 06:59 18:59 Intake Total 240 Balance 240 - Medications Medications: Current Medications Famotidine (Pepcid) 20 mg PO DAILY [facility] Hydromorphone HCl (Dilaudid) 0.5 mg IVP Q4H PRN PRN Reason: Pain, severe (8-10) Last Admin: 02/10/18 17:49 Dose: 0.5 mg Sodium Chloride (Sodium Chloride 0.9%) 1,000 mls @ 100 mls/hr IV .Q10H [facility] Last Admin: 02/11/18 17:10 Dose: Not Given Oxycodone/Acetaminophen (Percocet 5/325 Mg Tab) 1 tab PO Q4H PRN PRN Reason: Pain, Mild (1-3) Stop: 02/12/18 11:02 Last Admin: 02/11/18 10:49 Dose: 1 tab Polyethylene Glycol (Miralax) 17 gm PO BID [facility] Last Admin: 02/11/18 17:11 Dose: Not Given - Labs Labs: 02/11/18 07:00 02/11/18 07:00 PT 12.4 SECONDS (9.4-12.5) 02/06/18 19:29 INR 1.09 (0.93-1.08) H 02/06/18 19:29 APTT 32.9 Seconds (25.1-36.5) 02/06/18 19:29 Attending/Attestation - Attestation I have personally seen and examined this patient.: Yes I have fully participated in the care of the patient.: Yes I have reviewed all pertinent clinical information, including history, physical exam and plan: Yes Notes (Text): 02/10/18 62 year old female with past medical history of lymphocytic thyroiditis who presented with right shoulder pain s/p mechanical fall. She was found to have comminuted fracture of right proximal humerus with avulsion of the greater tuberosity. Orthopedics evaluation was appreciated and patient is s/p ORIF and nerve block POD #1. She is doing well post op. PT evaluation was requested. D /c planning likely tomorrow if cleared by ortho. Bismark Serra MD Hospitalist.
--- NOTE | 2018-02-10 17:46 | CP.PCM.DIS ---
<Kai Haley - Last Filed: 02/11/18 17:36> Provider - Provider Date of Admission: 02/06/18 17:18 Attending physician: Bismark Serra MD Primary care physician: Kiran Espana MD Consults: Kal David Time Spent in preparation of Discharge (in minutes): 45 Hospital Course - Lab Results Lab Results: Most Recent Lab Values WBC 10.0 10^3/ul (4.5-11.0) 02/10/18 06:30 RBC 3.51 10^6/uL (3.5-6.1) 02/10/18 06:30 Hgb 9.8 g/dL (12.0-16.0) L 02/10/18 06:30 Hct 29.6 % (36.0-48.0) L 02/10/18 06:30 MCV 84.3 fl (80.0-105.0) 02/10/18 06:30 MCH 27.9 pg (25.0-35.0) 02/10/18 06:30 MCHC 33.1 g/dl (31.0-37.0) 02/10/18 06:30 RDW 13.6 % (11.5-14.5) 02/10/18 06:30 Plt Count 230 10^3/uL (120.0-450.0) 02/10/18 06:30 MPV 9.5 fl (7.0-11.0) 02/10/18 06:30 Gran % 77.8 % (50.0-68.0) H 02/10/18 06:30 Lymph % (Auto) 10.9 % (22.0-35.0) L 02/10/18 06:30 [place] % (Auto) 11.1 % (1.0-6.0) H 02/10/18 06:30 Eos % (Auto) 0.1 % (1.5-5.0) L 02/10/18 06:30 Baso % (Auto) 0.1 % (0.0-3.0) 02/10/18 06:30 Gran # 7.80 (1.4-6.5) H 02/10/18 06:30 Lymph # (Auto) 1.1 (1.2-3.4) L 02/10/18 06:30 Weakley # (Auto) 1.1 (0.1-0.6) H 02/10/18 06:30 Eos # (Auto) 0.0 (0.0-0.7) 02/10/18 06:30 Baso # (Auto) 0.01 K/mm3 (0.0-2.0) 02/10/18 06:30 PT 12.4 SECONDS (9.4-12.5) 02/06/18 19:29 INR 1.09 (0.93-1.08) H 02/06/18 19:29 APTT 32.9 Seconds (25.1-36.5) 02/06/18 19:29 Sodium 140 mmol/L (132-148) 02/10/18 06:30 Potassium 4.1 mmol/L (3.6-5.0) 02/10/18 06:30 Chloride 108 mmol/L (98-107) H 02/10/18 06:30 Carbon Dioxide 23 mmol/L (21-33) 02/10/18 06:30 Anion Gap 13 (10-20) 02/10/18 06:30 BUN 10 mg/dL (7-21) 02/10/18 06:30 Creatinine 0.6 mg/dl (0.7-1.2) L 02/10/18 06:30 Est GFR ( Amer) > 60 02/10/18 06:30 Est GFR (Non-Af Amer) > 60 02/10/18 06:30 Random Glucose 108 mg/dL (70-110) 02/10/18 06:30 Calcium 8.1 mg/dL (8.4-10.5) L 02/10/18 06:30 Total Bilirubin 0.7 mg/dL (0.2-1.3) 02/07/18 07:00 AST 20 U/L (14-36) 02/07/18 07:00 ALT 30 U/L (7-56) 02/07/18 07:00 Alkaline Phosphatase 85 U/L (38-126) 02/07/18 07:00 Total Protein 7.1 g/dL (5.8-8.3) 02/07/18 07:00 Albumin 3.7 g/dL (3.0-4.8) 07/01/18 07:00 Globulin 3.4 gm/dL 02/07/18 07:00 Albumin/Globulin Ratio 1.1 (1.1-1.8) 02/07/18 07:00 Free T4 1.08 ng/dL (0.78-2.19) 02/07/18 07:00 Free T3 pg/mL 3.98 pg/mL (2.77-5.27) 02/07/18 07:00 T3 Uptake 34.8 % (23.0-41.0) 02/07/18 07:00 TSH 3rd Generation 4.45 mIU/mL (0.46-4.68) 02/07/18 07:00 Blood Type A POSITIVE 02/08/18 08:20 Blood Type Confirm A POSITIVE 02/08/18 09:00 Antibody Screen Negative 02/08/18 08:20 Crossmatch See Detail 02/08/18 08:20 BBK History Checked No verified bt 02/08/18 08:20 - Hospital Course Hospital Course: 62 y o female PMhx lymphoctyic thyroiditis (not on synthroid for past 6 months as per PCP) who presented with R shoulder pain after a trip and fall on . Pt tripped across a door beam on the floor, became air-borne, and landed on her R shoulder. Pt denied hitting her head during the episode. XR in the ED demonstrated acute fracture (comminuted and intra-articular at R proximal humerus, with no distal humerus abnormalities, and unremarkable radiographs of the R elbow. Ortho was consulted (Dr. David), who recommended surgical management of R proximal humerus fracture. Pt was pre-operatively cleared, and thus underwent ORIF of R proximal humerus. Pt tolerated procedure well, no complications post-op. On the day of discharge, she was ambulating, tolerating regular diet, voiding, passing flatus, and pain well controlled. She was discharged to home on 02/11/18 with instructions to follow-up at Dr. David's office in 7-10 days, and to follow-up with her PCP, Dr. Espana. Pt was given scripts for Percocet and walking cane. Pt will have outpatient physical therapy. - Date & Time of H&P Date of H&P: 02/11/18 Time of H&P: 13:15 Discharge Exam - Head Exam Head Exam: ATRAUMATIC, NORMOCEPHALIC Discharge Plan - Discharge Medications Prescriptions: oxyCODONE/Acetaminophen [Percocet 5/325 mg Tab] 1 ea PO Q6H #12 tab - Follow Up Plan Condition: STABLE Disposition: HOME/ ROUTINE Instructions: Preventing Falls in the Older Adult, Open Reduction and Internal Fixation Surgery (DC), Upper Arm Fracture, Shoulder Fracture (DC), How to Use a Shoulder Sling Additional Instructions: 1.) Please follow up with Dr. David at [phone] within one week 2.) Please take your pain medication as directed 3.) Please refrain from operating heavy machinery and other activities that require coordination 4.) Keep arm elevated, practice range of motion, and keep surgical site dry 5)You are given script for outpatient Physical therapy. Referrals: Kiran Espana MD [Primary Care Provider] - Lonnie David MD [Staff Provider] - <Bismark Serra - Last Filed: 02/11/18 18:54> Provider - Provider Date of Admission: 02/06/18 17:18 Attending physician: Bismark Serra MD Primary care physician: Kiran Espana MD Hospital Course - Lab Results Lab Results: Most Recent Lab Values WBC 9.0 10^3/ul (4.5-11.0) 02/11/18 07:00 RBC 3.55 10^6/uL (3.5-6.1) 02/11/18 07:00 Hgb 10.0 g/dL (12.0-16.0) L 02/11/18 07:00 Hct 29.6 % (36.0-48.0) L 02/11/18 07:00 MCV 83.4 fl (80.0-105.0) 02/11/18 07:00 MCH 28.2 pg (25.0-35.0) 02/11/18 07:00 MCHC 33.8 g/dl (31.0-37.0) 02/11/18 07:00 RDW 13.4 % (11.5-14.5) 02/11/18 07:00 Plt Count 217 10^3/uL (120.0-450.0) 02/11/18 07:00 MPV 9.1 fl (7.0-11.0) 02/11/18 07:00 Gran % 73.9 % (50.0-68.0) H 02/11/18 07:00 Lymph % (Auto) 14.1 % (22.0-35.0) L 02/11/18 07:00 Weak[place] % (Auto) 11.6 % (1.0-6.0) H 02/11/18 07:00 Eos % (Auto) 0.3 % (1.5-5.0) L 02/11/18 07:00 Baso % (Auto) 0.1 % (0.0-3.0) 02/11/18 07:00 Gran # 6.65 (1.4-6.5) H 02/11/18 07:00 Lymph # (Auto) 1.3 (1.2-3.4) 02/11/18 07:00 [place] # (Auto) 1.0 (0.1-0.6) H 02/11/18 07:00 Eos # (Auto) 0.0 (0.0-0.7) 02/11/18 07:00 Baso # (Auto) 0.01 K/mm3 (0.0-2.0) 02/11/18 07:00 PT 12.4 SECONDS (9.4-12.5) 02/06/18 19:29 INR 1.09 (0.93-1.08) H 02/06/18 19:29 APTT 32.9 Seconds (25.1-36.5) 02/06/18 19:29 Sodium 142 mmol/L (132-148) 02/11/18 07:00 Potassium 3.9 mmol/L (3.6-5.0) 02/11/18 07:00 Chloride 109 mmol/L (98-107) H 02/11/18 07:00 Carbon Dioxide 25 mmol/L (21-33) 02/11/18 07:00 Anion Gap 12 (10-20) 02/11/18 07:00 BUN 7 mg/dL (7-21) 02/11/18 07:00 Creatinine 0.5 mg/dl (0.7-1.2) L 02/11/18 07:00 Est GFR ( Amer) > 60 02/11/18 07:00 Est GFR (Non-Af Amer) > 60 02/11/18 07:00 Random Glucose 102 mg/dL (70-110) 02/11/18 07:00 Calcium 8.3 mg/dL (8.4-10.5) L 02/11/18 07:00 Total Bilirubin 0.7 mg/dL (0.2-1.3) 02/07/18 07:00 AST 20 U/L (14-36) 02/07/18 07:00 ALT 30 U/L (7-56) 02/07/18 07:00 Alkaline Phosphatase 85 U/L (38-126) 02/07/18 07:00 Total Protein 7.1 g/dL (5.8-8.3) 02/07/18 07:00 Albumin 3.7 g/dL (3.0-4.8) 02/07/18 07:00 Globulin 3.4 gm/dL 02/07/18 07:00 Albumin/Globulin Ratio 1.1 (1.1-1.8) 02/07/18 07:00 Free T4 1.08 ng/dL (0.78-2.19) 02/07/18 07:00 Free T3 pg/mL 3.98 pg/mL (2.77-5.27) 02/07/18 07:00 T3 Uptake 34.8 % (23.0-41.0) 02/07/18 07:00 TSH 3rd Generation 4.45 mIU/mL (0.46-4.68) 02/07/18 07:00 Blood Type A POSITIVE 02/08/18 08:20 Blood Type Confirm A POSITIVE 02/08/18 09:00 Antibody Screen Negative 02/08/18 08:20 Crossmatch See Detail 02/08/18 08:20 BBK History Checked No verified bt 02/08/18 08:20 Discharge Exam - Eye Exam Eye Exam: EOMI - ENT Exam ENT Exam: Normal Exam - Respiratory Exam Respiratory Exam: Clear to PA & Lateral. absent: Rales, Rhonchi - Cardiovascular Exam Cardiovascular Exam: REGULAR RHYTHM, +S1, +S2 - GI/Abdominal Exam GI & Abdominal Exam: Normal Bowel Sounds, Soft. absent: Distended, Organomegaly , Tenderness - Extremities Exam Additional comments: right upper arm in sling - Neurological Exam Neurological exam: Alert, Oriented x3 - Psychiatric Exam Psychiatric exam: Normal Affect, Normal Mood Discharge Plan - Follow Up Plan Patient education suggested?: Yes Attending/Attestation - Attestation I have personally seen and examined this patient.: Yes I have fully participated in the care of the patient.: Yes I have reviewed all pertinent clinical information, including history, physical exam and plan: Yes Notes (Text): 02/11/18 18:53 62 year old female with past medical history of lymphocytic thyroiditis who presented with right shoulder pain s/p mechanical fall. She was found to have comminuted fracture of right proximal humerus with avulsion of the greater tuberosity. She was seen by orthopedics and is s/p ORIF and nerve block POD # 2. She is doing well post op. She was seen by PT. Patient is discharged home to follow up with pmd. Follow up with orthopedics and outpatient PT. Bismark Serra MD Hospitalist.
[2018-02-11 07:19] LABS: BASO # 0.01 K/mm3 (0.0-2.0); BASO % 0.1 % (0.0-3.0); EOS % 0.3 % (1.5-5.0); GRAN # 6.65 (1.4-6.5); GRAN % 73.9 % (50.0-68.0); LYMPH # 1.3 (1.2-3.4); LYMPH % 14.1 % (22.0-35.0); MEAN CELL VOLUME 83.4 fl (80.0-105.0); MEAN CORPUSCULAR HEMOGLOBIN 28.2 pg (25.0-35.0); MEAN CORPUSCULAR HGB CONC 33.8 g/dl (31.0-37.0); MEAN PLATELET VOLUME 9.1 fl (7.0-11.0); MONO % 11.6 % (1.0-6.0); RBC 3.55 10^6/uL (3.5-6.1); RED CELL DISTRIBUTION WIDTH 13.4 % (11.5-14.5)
[2018-02-11 07:30] LABS: BLOOD UREA NITROGEN 7 mg/dL (7-21); CALCIUM 8.3 mg/dL (8.4-10.5); GFR AFRICAN-AMERICAN > 60; GFR NON-AFRICAN AMERICAN > 60
--- NOTE | 2018-02-11 09:41 | CP.PCM.PN ---
Subjective - Date & Time of Evaluation Date of Evaluation: 02/11/18 Time of Evaluation: 07:30 - Subjective Subjective: Ortho follow up Dr. David Patient states pain in her shoulder is improving. She is having problems with sling and keeping hand elevated. Denies numbness/tingling. Pain controlled. Objective - Vital Signs/Intake and Output Vital Signs (last 24 hours): Temp Pulse Resp BP Pulse Ox 98.4 F 76 20 129/67 98 02/11/18 06:00 02/11/18 06:00 02/11/18 06:00 02/11/18 06:00 02/11/18 06:00 Intake and Output: 02/11/18 02/11/18 06:59 18:59 Intake Total 240 Balance 240 - Medications Medications: Current Medications Famotidine (Pepcid) 20 mg IVP DAILY [facility] Last Admin: 02/10/18 10:28 Dose: 20 mg Hydromorphone HCl (Dilaudid) 0.5 mg IVP Q4H PRN PRN Reason: Pain, severe (8-10) Last Admin: 02/10/18 17:49 Dose: 0.5 mg Sodium Chloride (Sodium Chloride 0.9%) 1,000 mls @ 100 mls/hr IV .Q10H [facility] Last Admin: 02/10/18 01:25 Dose: Not Given Oxycodone/Acetaminophen (Percocet 5/325 Mg Tab) 1 tab PO Q4H PRN PRN Reason: Pain, Mild (1-3) Stop: 02/12/18 11:02 Last Admin: 02/10/18 10:28 Dose: 1 tab Polyethylene Glycol (Miralax) 17 gm PO BID [facility] Last Admin: 02/10/18 17:50 Dose: 17 gm - Labs Labs: 02/11/18 07:00 02/11/18 07:00 PT 12.4 SECONDS (9.4-12.5) 02/06/18 19:29 INR 1.09 (0.93-1.08) H 02/06/18 19:29 APTT 32.9 Seconds (25.1-36.5) 02/06/18 19:29 - Extremities Exam Additional comments: Right shoulder: dressing changed. Incision intact, dry, no erythema. Expected ecchymosis. noted swelling to arm and hand, sling adjusted. Encouraged AROM fingers/wrist/elbow. Explained to patient to keep hand elevated, and instructed on pendulums. sensation intact RUE: +ROM wrist flex/ext, fingers flex/ext Assessment and Plan (1) Closed fracture of right proximal humerus Assessment & Plan: POD#2 s/p ORIF right proximal humerus fracture OK to start PROM right shoulder elevated hand, encourage ROM keep incision dry and covered f/u Dr. David 7-10 days call for appointment [phone] orthopedically stable for d/c home today d/w Dr. David, agrees with above Status: Acute
[2018-02-11] MEDS: Sodium Chloride 0.9% 1,000 ML IV SCH ×2 (10:49→17:10)
[2018-02-11] MEDS: Oxycodone/Acetaminophen 5/325 mg Tab PO PRN (10:49)
[2018-02-11] MEDS: POLYETHYLENE GLYCOL 3350 17 GM/Dose PACKET PO SCH ×2 (10:49→17:11)
[2018-02-11 14:48] VITALS: BP 115/73; PULSE 96; RESP 18; TEMP 98; O2SAT 100
== END 2018-02-11 22:29 | disposition home or self-care (01) | DRG 494 ==
LOC: ED 14:52 → ERH 17:18 → 5RSO 21:01
PROVIDERS: ADMIT Internal Medicine; ATTEND Internal Medicine
PROC: 0PSC04Z Reposition Right Humeral Head with Internal Fixation Device, Open Approach (ICD-10-PCS; principal; 2018-02-09 07:00)
DX: S42.291A Other displaced fracture of upper end of right humerus, initial encounter for closed fracture (principal); W01.0XXA Fall on same level from slipping, tripping and stumbling without subsequent striking against object, initial encounter; E06.3 Autoimmune thyroiditis; Y92.89 Other specified places as the place of occurrence of the external cause

== ENCOUNTER 2018-02-16 19:01 | Emergency (ER) | payer OTHER, BC ==
[2018-02-16 19:01] VITALS: BMI 35.2
[2018-02-16] MEDS ORDERED: Oxycodone/Acetaminophen 5/325 mg Tab PO STA (19:34)
--- NOTE | 2018-02-16 19:38 | ED PDOC ---
Arrival/HPI - General Chief Complaint: Upper Extremity Problem/Injury Time Seen by Provider: 02/16/18 19:27 - History of Present Illness Narrative History of Present Illness (Text): 62 y/o F c PSHx R proximal humerus fracture s/p ORIF about 5 days ago p/w R arm swelling since getting home, which is causing her concern. She denies significant pain and states she has not been taking the Percocet she was prescribed for home. She has an appointment with Ortho this coming Thursday. She denies chest pain, dyspnea, or fever. Past Medical History - Past History Past History: Non-Contributing - Infectious Disease Hx of Infectious Diseases: None - Tetanus Immunization Tetanus Immunization: Up to Date - Cardiac Hx Cardiac Disorders: No - Pulmonary Hx Respiratory Disorders: No - Neurological Hx Neurological Disorder: No Hx Paralysis: No - HEENT Hx HEENT Disorder: No - Renal Hx Renal Disorder: No - Endocrine/Metabolic Hx Endocrine Disorders: Yes Hx Hypothyroidism: Yes - Hematological/Oncological Hx Blood Disorders: No - Integumentary Hx Dermatological Disorder: No - Musculoskeletal/Rheumatological Hx Musculoskeletal Disorders: No - Gastrointestinal Hx Gastrointestinal Disorders: No - Genitourinary/Gynecological Hx Genitourinary Disorders: No - Psychiatric Hx Psychophysiologic Disorder: No Hx Substance Use: No - Past Surgical History Past Surgical History: No Previous - Surgical History Other/Comment: left thyroid bx 11/26/12 +thyroid nodule, not on synthroid, not renewed by dr cedeno 6 months ago, d&c x2 "years ago" - Anesthesia Hx Anesthesia Reactions: No Hx Malignant Hyperthermia: No - Suicidal Assessment Feels Threatened In Home Enviroment: No Family/Social History Family/Social History: No Known Family HX Smoking Status: Never Smoked Hx Alcohol Use: No (SOCIALLY) Hx Substance Use: No Hx Substance Use Treatment: No Allergies/Home Meds Allergies/Adverse Reactions: Allergies No Known Allergies Allergy (Verified 02/16/18 19:21) Review of Systems - Physician Review All systems were reviewed & negative as marked: Yes - Review of Systems Constitutional: absent: Fevers Respiratory: absent: SOB Physical Exam - Physical Exam Narrative Physical Exam (Text): Gen: NAD Head: NC/AT Eyes: PERRL ENT: MMM Neck: Supple Chest: No deformity CV: Radial pulse 2+ Lungs: CTA b/l Abd: Soft Skin: R hand ecchymoses at IP joints Extremities: Diffuse edema of R arm mostly visible in hand/digits Neuro: Alert, motor 5/5 in R arm, sensation to light touch intact Vital Signs Temp Pulse Resp BP Pulse Ox 02/16/18 19:23 97.9 F 107 H 18 162/99 H 97 Medical Decision Making ED Course and Treatment: Likely normal post operative edema. Advised patient on proper management and elevation. Percocet for pain. Will rule out DVT and thrombocytopenia. Platelets normal. US shows no DVT, distal subclavian unable to be visualized due to recent surgery, but remaining areas normal. - Lab Interpretations Lab Results: 02/16/18 20:05 02/16/18 20:05 Lab Results 02/16/18 20:05: Sodium 141, Potassium 4.0, Chloride 104, Carbon Dioxide 26, Anion Gap 16, BUN 12, Creatinine 0.6 L, Est GFR ( Amer) > 60, Est GFR ( Non-Af Amer) > 60, Random Glucose 101, Calcium 9.1, Total Bilirubin 0.6, AST 33 , ALT 46, Alkaline Phosphatase 116, Total Protein 7.4, Albumin 3.9, Globulin 3.5 , Albumin/Globulin Ratio 1.1 02/16/18 20:05: WBC 9.5, RBC 3.82, Hgb 10.8 L, Hct 32.3 L, MCV 84.6, MCH 28.3, MCHC 33.4, RDW 13.5, Plt Count 371, MPV 8.9, Gran % 72.3 H, Lymph % (Auto) 20.0 L, Arroyo % (Auto) 7.2 H, Eos % (Auto) 0.3 L, Baso % (Auto) 0.2, Gran # 6.88 H, Lymph # (Auto) 1.9, Arroyo # (Auto) 0.7 H, Eos # (Auto) 0.0, Baso # (Auto) 0.02 - RAD Interpretation Radiology Orders: 02/16/18 19:34 DUPLEX UPPER EXTRM VEIN RIGHT [US] Stat - Medication Orders Current Medication Orders: Discontinued Medications Oxycodone/Acetaminophen (Percocet 5/325 Mg Tab) 1 tab PO STAT STA Stop: 02/16/18 19:35 Last Admin: 02/16/18 19:48 Dose: 1 tab MAR Pain Assessment Document 02/16/18 19:48 MARIELOS (Rec: 02/16/18 19:48 MARIELOS [id number]) Pain Reassessment Is this a pain reassessment? Yes Presence of Pain Presence of Pain Yes Pain Scale Used Pain Scale Used Numeric Location Left, Right or Bilateral Right Pain Location Body Site Arm Hand Description Description Constant Intensity of Pain at present 8 Disposition/Present on Arrival - Present on Arrival Any Indicators Present on Arrival: No History of DVT/PE: No History of Uncontrolled Diabetes: No Urinary Catheter: No History of Decub. Ulcer: No History Surgical Site Infection Following: None - Disposition Have Diagnosis and Disposition been Completed?: Yes Diagnosis: Arm swelling Disposition: HOME/ ROUTINE Disposition Time: 21:09 Patient Plan: Discharge Condition: STABLE Discharge Instructions (ExitCare): Postoperative Pain (DC) Referrals: Lonnie David MD [Staff Provider] - Follow up with primary Forms: [employer] ([place]ian)
[2018-02-16 20:09] LABS: BASO # 0.02 K/mm3 (0.0-2.0); BASO % 0.2 % (0.0-3.0); EOS % 0.3 % (1.5-5.0); GRAN # 6.88 (1.4-6.5); GRAN % 72.3 % (50.0-68.0); HEMOGLOBIN 10.8 g/dL (12.0-16.0); LYMPH # 1.9 (1.2-3.4); MEAN CELL VOLUME 84.6 fl (80.0-105.0); MEAN CORPUSCULAR HEMOGLOBIN 28.3 pg (25.0-35.0); MEAN CORPUSCULAR HGB CONC 33.4 g/dl (31.0-37.0); MEAN PLATELET VOLUME 8.9 fl (7.0-11.0); MONO # 0.7 (0.1-0.6); MONO % 7.2 % (1.0-6.0); RBC 3.82 10^6/uL (3.5-6.1); RED CELL DISTRIBUTION WIDTH 13.5 % (11.5-14.5); WHITE BLOOD COUNT 9.5 10^3/ul (4.5-11.0)
[2018-02-16 20:35] LABS: ALB/GLOB RATIO 1.1 (1.1-1.8); ALBUMIN 3.9 g/dL (3.0-4.8); ALT/SGPT 46 U/L (7-56); AST/SGOT 33 U/L (14-36); BLOOD UREA NITROGEN 12 mg/dL (7-21); CALCIUM 9.1 mg/dL (8.4-10.5); GFR AFRICAN-AMERICAN > 60; GFR NON-AFRICAN AMERICAN > 60
[2018-02-16 22:02] VITALS: BP 142/52; PULSE 75; TEMP 98; O2SAT 99
[2018-02-16 22:03] VITALS: RESP 19
--- NOTE | 2018-02-18 16:17 | US ---
PROCEDURE: Right upper extremity venous US CLINICAL HISTORY: Arm pain and swelling Evaluate for deep venous thrombosis. PHYSICIAN(S): Rahul Adorno M.D FINDINGS: The exam is very limited by the bandages. The visualized rightinternal jugular vein is sonographically normal and compressible. No evidence of obstruction or thrombus is seen. The visualized segments of the right subclavian vein are patent with normal waveforms. No sonographic evidence of obstruction or thrombosis is seen. The visualized deep venous system of the proximal right upper extremity is sonographically normal and compressible. IMPRESSION: 1. No sonographic evidence for deep venous thrombosis in the visualized segments of the right upper extremity. 2. Very limited study.
== END 2018-02-16 22:01 | disposition home or self-care (01) ==
LOC: ED 19:01
DX: M79.89 Other specified soft tissue disorders (principal); E03.9 Hypothyroidism, unspecified

== ENCOUNTER 2018-09-10 10:48 | Outpatient (CLI) | payer BC | END 2018-09-10 10:49 | disposition home or self-care (01) | LOC: LAB 10:48 ==

== ENCOUNTER 2018-09-14 09:44 | Outpatient (CLI) | payer BC | END 2018-09-14 09:45 | disposition home or self-care (01) | LOC: RAD 09:44 ==

== ENCOUNTER 2018-11-03 10:18 | Day surgery (SDC) | payer BC ==
[2018-11-03 10:54] LABS: BASO # 0.02 K/mm3 (0.0-2.0); BASO % 0.3 % (0.0-3.0); EOS % 0.6 % (1.5-5.0); HEMOGLOBIN 13.5 g/dL (12.0-16.0); LYMPH # 1.6 (1.2-3.4); LYMPH % 25.4 % (22.0-35.0); MEAN CELL VOLUME 84.8 fl (80.0-105.0); MEAN CORPUSCULAR HEMOGLOBIN 28.2 pg (25.0-35.0); MEAN CORPUSCULAR HGB CONC 33.3 g/dl (31.0-37.0); MEAN PLATELET VOLUME 9.6 fl (7.0-11.0); MONO # 0.6 (0.1-0.6); MONO % 8.5 % (1.0-6.0); RBC 4.79 10^6/uL (3.5-6.1); RED CELL DISTRIBUTION WIDTH 13.1 % (11.5-14.5); WHITE BLOOD COUNT 6.5 10^3/uL (4.5-11.0)
[2018-11-03 11:01] LABS: BLOOD UREA NITROGEN 9 mg/dL (7-21); GFR NON-AFRICAN AMERICAN > 60
[2018-11-03 11:03] LABS: INR 1.14; PARTIAL THROMBOPLASTIN TIME 37.4 Seconds (26.9-38.3); PROTHROMBIN TIME 12.9 SECONDS (9.4-12.5)
[2018-11-03] MEDS ORDERED: Midazolam 2 MG/2 ML VIAL ONE ×2 (18:00→18:37)
[2018-11-03] MEDS ORDERED: Lidocaine 1% Inj (20ml) ONE (18:01)
[2018-11-03] MEDS ORDERED: Midazolam 2 MG/2 ML VIAL IVP ONE (18:35)
[2018-11-03] MEDS ORDERED: Sodium Chloride 0.45% 1,000 ML IV SCH (18:45)
[2018-11-03 20:03] VITALS: BP 135/85; PULSE 83; RESP 20; TEMP 97.3; O2SAT 96
--- NOTE | 2018-11-03 20:24 | US ---
PROCEDURE: Ultrasound-guided left thyroid fine needle aspiration biopsy. CLINICAL HISTORY: Dominant 2.4 cm hypoechoic left lower pole thyroid nodule. Evaluate for malignancy PHYSICIAN(S): Rahul Adorno M.D. TECHNIQUE: The relative risks and indications for the procedure were explained to the patient and consent obtained. The patient was placed supine on the stretcher with the neck extended and preliminary sonography of the thyroid performed. This reveal 2.4 cm hypoechoic nodule in the left lower pole. The neck was prepped and draped in the usual sterile fashion. Conscious sedation and monitoring were provided throughout the procedure by a nurse. 1% Xylocaine was used to anesthetize the skin and soft tissues at the access site. Three passes with a 22-gauge needle were performed under ultrasound guidance for fine needle aspiration of the 2.4 cm hypoechoic nodule in the left thyroid. The slides were reviewed by pathology and deemed adequate. The patient tolerated the procedure well. IMPRESSION: 1. Ultrasound guided fine needle aspiration of a 2.4 cm hypoechoic nodule in the left lower pole
== END 2018-11-03 21:38 | disposition home or self-care (01) ==
LOC: SDS 10:18 → 5RSO 19:42 → SDS 21:38
PROVIDERS: ATTEND Radiology Vascular & Interventional Radiology
DX: E04.1 Nontoxic single thyroid nodule (principal)